=== PATIENT | female | born 1980 | race Caucasian/White ===

== ENCOUNTER → 2016-06-19 | Outpatient (CLI) | payer BC | LOC: MW.CHOBGYN 15:24 | PROVIDERS: ATTEND Nurse Practitioner Women's Health | DX: O36.0191 Maternal care for anti-D [Rh] antibodies, unspecified trimester, fetus 1 (principal); O09.899 Supervision of other high risk pregnancies, unspecified trimester | CPT/HCPCS: 36415; 85025; 86850; 86900; 86901; J2790 ==

== ENCOUNTER → 2016-06-22 | Outpatient (CLI) | payer BC | LOC: MW.CHOBGYN 08:43 | PROVIDERS: ATTEND Nurse Practitioner Women's Health | DX: Z34.90 Encounter for supervision of normal pregnancy, unspecified, unspecified trimester (principal) | CPT/HCPCS: 36415; 82950 ==

== ENCOUNTER → 2016-08-07 | Outpatient (CLI) | payer BC | LOC: MW.CHOBGYN 16:27 | PROVIDERS: ATTEND Advanced Practice Midwife | DX: Z34.90 Encounter for supervision of normal pregnancy, unspecified, unspecified trimester (principal) | CPT/HCPCS: 87081 ==

== ENCOUNTER 2016-08-25 05:32 | Inpatient (IN) | payer BC ==
[2016-08-25] MEDS ORDERED: Sodium Chloride 0.9% 2.5 ML Syringe FLUSH PRN (08:28)
[2016-08-25] MEDS ORDERED: Lidocaine 1% 50 ML MDV INJECT PRN (08:28)
[2016-08-25] MEDS ORDERED: Water For Irrigation,Sterile 1,000 ML Container IRR PRN (08:28)
[2016-08-25] MEDS ORDERED: Methylergonovine 0.2 MG/1 ML Amp IM PRN (08:28)
[2016-08-25] MEDS ORDERED: Carboprost Tromethamine 250 MCG/1 ML Amp IM PRN (08:28)
[2016-08-25] MEDS ORDERED: Sodium Chloride 0.9% 10 ML Syringe FLUSH PRN (08:28)
[2016-08-25] MEDS ORDERED: Butorphanol 1 MG/ML SDV IVPUSH PRN (08:28)
[2016-08-25] MEDS ORDERED: Nalbuphine 10 MG/1 ML Vial IVPUSH PRN (08:28)
[2016-08-25] MEDS ORDERED: Misoprostol 200 MCG Tab PO PRN (08:28)
[2016-08-25] MEDS ORDERED: Oxytocin/Lactated Ringers 30 UNIT/500 ML BAG IV SCH (08:30)
--- NOTE | 2016-08-25 08:31 | PCM.LDHP ---
L&D History of Present Illness - General Date of Service: 08/25/16 Admit Problem/Dx: Patient Status Order with Admit Dx/Problem 08/25/16 06:39 Patient Status [ADT] Routine Admission Diagnosis/Problem Admission Diagnosis/Problem Planned 08/25/16 08:27 36 yo EDC 09/11/2016 37 4/7 wks. A-, RI, GBS neg. Hx of PTD, was on 17OHP this . Prob: AMA, GDMA1. Source of Information: Patient History Limitations: Reports: No limitations - History of Present Illness Timing/Duration: Reports: gradual onset Severity: moderate Improves with: Reports: None Worsens with: Reports: None Associated Symptoms: Reports: N - Related Data Allergies/Adverse Reactions: Allergies Allergy/AdvReac Type Severity Reaction Status Date / Time Sulfa (Sulfonamide Allergy Hives Verified 08/25/16 06:38 Antibiotics) Home Medications: Home Meds DULoxetine [Cymbalta] 1 tab PO BRK 05/25/14 [History] Vilazodone [Viibryd] 1 tab PO BRK 05/25/14 [History] Past Medical History HEENT History: Reports: Sinusitis 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: Psychiatric History: Reports: Anxiety, Depression - Past Surgical History HEENT Surgical History: Reports: Naso-sinus surgery, Tonsillectomy GI Surgical History: Reports: Cholecystectomy Social & Family History - Family History Family Medical History: Noncontributory - Tobacco Use Smoking Status *Q: Never Smoker Used Tobacco, but Quit: No Second Hand Smoke Exposure: No - Caffeine Use Caffeine Use: Reports: None - Alcohol Use Days Per Week of Alcohol Use: 0 Number of Drinks Per Day: 0 Total Drinks Per Week: 0 - Recreational Drug Use Recreational Drug Use: No Drug Use in Last 12 Months: No H&P Review of Systems - Review of Systems: Review Of Systems: See Below General: Reports: no symptoms HEENT: Reports: no symptoms Pulmonary: Reports: No Symptoms Cardiovascular: Reports: no symptoms Gastrointestinal: Reports: No symptoms Genitourinary: Reports: no symptoms Musculoskeletal: Reports: no symptoms Skin: Reports: no symptoms Psychiatric: Reports: no symptoms Neurological: Reports: No Symptoms Hematologic/Lymphatic: Reports: no symptoms Immunologic: Reports: no symptoms L&D Exam - Exam Exam: See Below - Vital Signs Weight: 100.244 kg - OB Specific Contraction Intensity: Moderate to Strong movement: active heart tones: present Heart Rate (FHR) Variability: Moderate (6-25 bmp) Presentation: Vertex - Ivan Score Ivan Score Cervix Position: Midposition Ivan Score Consistency: Soft Ivan Score Effacement: >80% Ivan Score Dilation: 3-4 cm Ivna Score 's Station: -2 Ivan Score Total: 9 - Exam General: alert, oriented, cooperative HEENT: Hearing intact Lungs: Normal respiratory effort Abdomen: soft (gravid) Rectal Exam: Deferred Genitourinary: Cervical dilitation Back Exam: full range of motion Extremities: normal inspection Skin: warm, dry, intact Neurological: cranial nerves intact Psychiatric: alert, normal affect, normal mood - Problem List (1) Supervision of normal IUP (intrauterine ) in multigravida SNOMED Code(s): 746302126, 684155496, 304813903 ICD Code: Z34.80 - ENCOUNTER FOR SUPRVSN OF NORMAL , UNSP TRIMESTER Status: Acute Priority: High Current Visit: Yes Qualifiers: Trimester: third trimester Qualified Code(s): Z34.83 - Encounter for supervision of other normal , third trimester Problem List Initiated/Reviewed/Updated: Yes Orders Last 24hrs: Active Orders 24 hr Category Date Time Status Patient Status [ADT] Routine ADT 08/25/16 06:39 Active Non Stress Test [RC] PER UNIT ROUTINE Care 08/25/16 06:39 Active Up ad Cassie [RC] ASDIRECTED Care 08/25/16 06:39 Active Vaginal Exam [RC] Click To Edit Care 08/25/16 06:39 Active Vital Signs [RC] PER UNIT ROUTINE Care 08/25/16 06:39 Active Resuscitation Status Routine Resus Stat 08/25/16 06:39 Ordered Assessment/Plan Comment:: Labor A: 36 yo EDC 09/11/2016 37 4/7 wks. A-, RI, GBS neg. Hx of PTD, was on 17OHP this . Prob: AMA, GDMA1 P: Admit to L&D, intermit monitoring per protocol, epidural prn, anticipate
[2016-08-25] MEDS: Lactated Ringers 1,000 ML IV SCH ×2 (08:40→10:02)
[2016-08-25] MEDS ORDERED: Ibuprofen 400 MG Tab PO PRN (11:12)
[2016-08-25] MEDS ORDERED: Acetaminophen 500 MG Tab PO PRN ×2 (11:12)
[2016-08-25] MEDS ORDERED: Witch Hazel Medicated Pads 40/Jar TOP PRN (11:12)
[2016-08-25] MEDS ORDERED: Bisacodyl 10 MG Supp RECTAL PRN (11:12)
[2016-08-25] MEDS ORDERED: Benzocaine/Menthol 20%-0.5% Spray 78 GM Cannister TOP PRN (11:12)
[2016-08-25] MEDS ORDERED: oxyCODONE 5 MG Tab PO PRN (11:12)
[2016-08-25] MEDS ORDERED: Docusate Sodium 100 MG Cap PO PRN (11:12)
[2016-08-25] MEDS ORDERED: Lanolin 100% Cream 7 GM Tube TOP PRN (11:12)
--- NOTE | 2016-08-25 11:20 | PCM.DEL ---
L & D Note - General Info Date of Service: 08/25/16 Mother's Due Date: 09/11/16 - Delivery Note Labor: spontaneous Delivery Outcome: Livebirth Infant Delivery Method: Spontaneous Vaginal Delivery Presentation: Vertex Nuchal cord: none Amniotic Fluid Description: Clear Episiotomy Type: None Laceration: none Placenta: intact, spontaneous Estimated blood loss: 100 Resuscitation needed: No Score 1 min: 6 Score 5 min: 9 Second Stage Interventions: Reports: Pushing Effectively Delivery Comments (Free Text/Narrative):: of viable male over intact perineum. Head delivered with good pushing, shoulders and body followed easily. Infant to mothers abd with RN at for evaluation. Delayed cord clamping. Pitocin to IVF. Cord clamped x2 and cut by FOB. Cord blood collected. Placenta delivered grossly intact with 3VC. Inspection noted intact perineum. Counts correct. EBL 100cc, APGARS 6/9, Wt: 8lb 1oz. Mother and infant left in stable condition for recovery. - General Info Date of Service: 08/25/16 Admission Dx/Problem (Free Text): Patient Status Order with Admit Dx/Problem 08/25/16 06:39 Patient Status [ADT] Routine Admission Diagnosis/Problem Admission Diagnosis/Problem Planned 08/25/16 08:27 36 yo EDC 09/11/2016 37 4/7 wks. A-, RI, GBS neg. Hx of PTD, was on 17OHP this . Prob: AMA, GDMA1. Functional Status: Reports: pain controlled, tolerating diet - Review of Systems General: Reports: No Symptoms HEENT: Reports: no symptoms Pulmonary: Reports: no symptoms Cardiovascular: Reports: No Symptoms Gastrointestinal: Reports: No symptoms Genitourinary: Reports: no symptoms Musculoskeletal: Reports: no symptoms Skin: Reports: no symptoms Neurological: Reports: No Symptoms Psychiatric: Reports: no symptoms - Patient Data Weight - most recent: 100.244 kg Lab Results last 24 hrs: Laboratory Results - last 24 hr 08/25/16 08/25/16 Range/Units 08:49 08:49 WBC 8.29 (4.0-11.0) K/uL RBC 4.28 L (4.30-5.90) M/uL Hgb 10.1 L (12.0-16.0) g/dL Hct 32.2 L (36.0-46.0) % MCV 75.2 L (80.0-98.0) fL MCH 23.6 L (27.0-32.0) pg MCHC 31.4 (31.0-37.0) g/dL RDW Std Deviation 46.7 (28.0-62.0) fl RDW Coeff of Angelito 17 H (11.0-15.0) % Plt Count 187 (150-400) K/uL Nucleated RBC % 0.0 /100WBC Nucleated RBCs # 0 K/uL Blood Type A NEGATIVE Antibody Screen POSITIVE Antibody Identification Undetermined Specific Med Orders - Current: Current Medications Acetaminophen (Tylenol Extra Strength) 500 mg PO Q4H PRN PRN Reason: Pain Acetaminophen (Tylenol Extra Strength) 1,000 mg PO Q4H PRN PRN Reason: Pain Benzocaine/Menthol (Dermoplast Pain Relief 20%-0.5% [place]) 78 gm TOP ASDIRECTED PRN PRN Reason: Perineal Comfort Measure Bisacodyl (Dulcolax) 10 mg RECTAL .ONCE PRN PRN Reason: Constipation Docusate Sodium (Colace) 100 mg PO BID PRN PRN Reason: Constipation Emollient Ointment (Lansinoh Hpa) 0 gm TOP ASDIRECTED PRN PRN Reason: Sore Nipples Ibuprofen (Motrin) 400 mg PO Q4H PRN PRN Reason: Pain Ibuprofen (Motrin) 800 mg PO Q6H PRN PRN Reason: Pain Oxycodone HCl (Oxycodone) 5 mg PO Q2H PRN PRN Reason: Pain Witch Brandi (Tucks) 1 pad TOP ASDIRECTED PRN PRN Reason: comfort care Discontinued Medications Butorphanol Tartrate (Stadol) 1 mg IVPUSH ASDIRECTED PRN PRN Reason: Pain Carboprost Tromethamine (Hemabate Ds) 250 mcg IM ASDIRECTED PRN PRN Reason: Post Hemorrhage Lactated Ringer's (Ringers, Lactated) 1,000 mls @ 150 mls/hr IV ASDIRECTED COUNTS INCLUDE 234 BEDS AT THE [facility] Last Admin: 08/25/16 10:02 Dose: 150 mls/hr Oxytocin/Lactated Ringer's (Pitocin In Lr 30 Units/500 Ml) 30 unit in 500 mls @ 999 mls/hr IV TITRATE ALBERT PRN Reason: 999 MUNITS/MIN Stop: 08/25/16 09:01 Last Admin: 08/25/16 10:50 Dose: 999 munits/min, 999 mls/hr Lidocaine HCl (Xylocaine 1%) 50 ml INJECT .ONCE PRN PRN Reason: Laceration repair Methylergonovine Maleate (Methergine) 0.2 mg IM ASDIRECTED PRN PRN Reason: Post Hemorrhage Misoprostol (Cytotec) 200 mcg PO .ONCE PRN PRN Reason: Post Hemorrhage Nalbuphine HCl (Nubain) 10 mg IVPUSH ASDIRECTED PRN PRN Reason: Pain (severe 7-10) Stop: 08/27/16 08:29 Last Admin: 08/25/16 09:24 Dose: 10 mg Sodium Chloride (Saline Flush) 10 ml FLUSH ASDIRECTED PRN PRN Reason: Keep Vein Open Sodium Chloride (Saline Flush) 2.5 ml FLUSH ASDIRECTED PRN PRN Reason: Keep Vein Open Sterile Water (Sterile Water For Irrigation) 1,000 ml IRR ASDIRECTED PRN PRN Reason: delivery Last Admin: 08/25/16 10:50 Dose: 1,000 ml - Exam General: alert, oriented, cooperative, no acute distress Lungs: Normal respiratory effort Abdomen: soft, no tenderness, no distension (Female) Exam: Normal external exam, Vaginal bleeding Back Exam: full range of motion Extremities: edema (legs and feet) Skin: warm, dry, intact Wound/Incisions: healing well Neurological: no new focal deficit Psy/Mental Status: alert, normal affect, normal mood - Problem List & Annotations (1) Supervision of normal IUP (intrauterine ) in multigravida SNOMED Code(s): 353879641, 941484083, 588636441 Code(s): Z34.80 - ENCOUNTER FOR SUPRVSN OF NORMAL , UNSP TRIMESTER Status: Acute Priority: High Current Visit: Yes Qualifiers: Trimester: third trimester Qualified Code(s): Z34.83 - Encounter for supervision of other normal , third trimester (2) (normal spontaneous vaginal delivery) SNOMED Code(s): 56038609 Code(s): O80 - ENCOUNTER FOR FULL-TERM UNCOMPLICATED DELIVERY Status: Acute Priority: Medium Current Visit: Yes - Problem List Review Problem List Initiated/Reviewed/Updated: Yes - My Orders Last 24 Hours: My Active Orders 08/25/16 06:39 Non Stress Test [RC] PER UNIT ROUTINE Up ad Cassie [RC] ASDIRECTED Vaginal Exam [RC] Click To Edit Vital Signs [RC] PER UNIT ROUTINE 08/25/16 08:28 Heart Tones [RC] CONTINUOUS Non Stress Test [RC] PER UNIT ROUTINE May Shower [RC] ASDIRECTED Notify Provider [RC] PRN Up ad Cassie [RC] ASDIRECTED Vaginal Exam [RC] PRN Vital Signs [RC] PER UNIT ROUTINE 08/25/16 11:12 May Shower [RC] ASDIRECTED Up ad Cassie [RC] ASDIRECTED Vital Signs [RC] PER UNIT ROUTINE Acetaminophen [Tylenol Extra Strength] 1,000 mg PO Q4H PRN Acetaminophen [Tylenol Extra Strength] 500 mg PO Q4H PRN Benzocaine/Menthol [Dermoplast Pain Relief 20%-0.5% [place]] 78 gm TOP ASDIRECTED PRN Bisacodyl [Dulcolax] 10 mg RECTAL .ONCE PRN Docusate Sodium [Colace] 100 mg PO BID PRN Ibuprofen [Motrin] 400 mg PO Q4H PRN Ibuprofen [Motrin] 800 mg PO Q6H PRN Lanolin [Lansinoh HPA] See Dose Instructions TOP ASDIRECTED PRN Witch Brandi [Tucks] 1 pad TOP ASDIRECTED PRN oxyCODONE 5 mg PO Q2H PRN Assess Lochia [WOMSER] Per Unit Routine Assess Uterine Involution [WOMSER] Per Unit Routine Peripheral IV Discontinue [OM.PC] Routine Resuscitation Status Routine 08/25/16 11:14 Patient Status [ADT] Routine 08/25/16 Lunch Regular Diet [DIET] - Assessment Assessment:: of viable male. Perineum intact. EBL 100cc, APGARS 6/9, Wt: 8lb 1oz. - Plan Plan:: Labor A: 36 yo EDC 09/11/2016 37 4/7 wks. A-, RI, GBS neg. Hx of PTD, was on 17OHP this . Prob: AMA, GDMA1 P: Admit to L&D, intermit monitoring per protocol, epidural prn, anticipate Delivery P: routine pp plan of care.
[2016-08-25] MEDS: Ibuprofen 800 MG Tab PO PRN (21:01)
[2016-08-26] MEDS: Ibuprofen 800 MG Tab PO PRN (04:56)
--- NOTE | 2016-08-26 08:18 | PCM.DCSUM1 ---
Discharge Summary - Hospital Course Free Text/Narrative:: Discharge home with . Follow up 6 weeks or sooner if needed. - Discharge Data Discharge Date: 08/26/16 Discharge Disposition: Home, Self-Care 01 Condition: Good - Discharge Diagnosis/Problem(s) (1) Supervision of normal IUP (intrauterine ) in multigravida SNOMED Code(s): 805989270, 210204413, 321894049 ICD Code: Z34.80 - ENCOUNTER FOR SUPRVSN OF NORMAL , UNSP TRIMESTER Status: Acute Priority: High Current Visit: Yes Qualifiers: Trimester: third trimester Qualified Code(s): Z34.83 - Encounter for supervision of other normal , third trimester (2) (normal spontaneous vaginal delivery) SNOMED Code(s): 02066942 ICD Code: O80 - ENCOUNTER FOR FULL-TERM UNCOMPLICATED DELIVERY Status: Acute Priority: Medium Current Visit: Yes - Patient Instructions Diet: Usual Diet as Tolerated Activity: As Tolerated, Rest and Relax Today Driving: May Drive Today Showering/Bathing: May Shower Notify Provider of: Fever, Increased Pain, Swelling and Redness, Nausea and/or Vomiting Other/Special Instructions: Discharge home with . Follow up 6 weeks or sooner if needed. - Discharge Plan Home Medications: Home Meds DULoxetine [Cymbalta] 1 tab PO BRK 05/25/14 [History] Vilazodone [Viibryd] 1 tab PO BRK 05/25/14 [History] Referrals: [facility] [Outside] Patricia Hamilton CNM [Primary Care Provider] - 10/06/16 10:45 am - General Info Date of Service: 08/26/16 Admission Dx/Problem (Free Text: Patient Status Order with Admit Dx/Problem 08/25/16 06:39 Patient Status [ADT] Routine Admission Diagnosis/Problem Admission Diagnosis/Problem Planned 08/25/16 08:27 36 yo EDC 09/11/2016 37 4/7 wks. A-, RI, GBS neg. Hx of PTD, was on 17OHP this . Prob: AMA, GDMA1. Functional Status: Reports: pain controlled, tolerating diet, ambulating, urinating - Review of Systems General: Reports: No Symptoms HEENT: Reports: no symptoms Pulmonary: Reports: no symptoms Cardiovascular: Reports: No Symptoms Gastrointestinal: Reports: No symptoms Genitourinary: Reports: no symptoms Musculoskeletal: Reports: no symptoms Skin: Reports: no symptoms Neurological: Reports: No Symptoms Psychiatric: Reports: no symptoms - Patient Data Vitals - Most Recent: Last Vital Signs Temp 36.7 C 08/26/16 04:34 Pulse 67 08/26/16 04:34 Resp 14 08/26/16 04:34 BP 137/69 08/26/16 04:34 Pulse Ox 99 08/26/16 04:34 Weight - Most Recent: 100.244 kg Lab Results - Last 24 hrs: Laboratory Results - last 24 hr 08/25/16 08/25/16 Range/Units 08:49 08:49 WBC 8.29 (4.0-11.0) K/uL RBC 4.28 L (4.30-5.90) M/uL Hgb 10.1 L (12.0-16.0) g/dL Hct 32.2 L (36.0-46.0) % MCV 75.2 L (80.0-98.0) fL MCH 23.6 L (27.0-32.0) pg MCHC 31.4 (31.0-37.0) g/dL RDW Std Deviation 46.7 (28.0-62.0) fl RDW Coeff of Angelito 17 H (11.0-15.0) % Plt Count 187 (150-400) K/uL Nucleated RBC % 0.0 /100WBC Nucleated RBCs # 0 K/uL Blood Type A NEGATIVE Antibody Screen POSITIVE Antibody Identification Undetermined Specific Med Orders - Current: Current Medications Acetaminophen (Tylenol Extra Strength) 500 mg PO Q4H PRN PRN Reason: Pain Acetaminophen (Tylenol Extra Strength) 1,000 mg PO Q4H PRN PRN Reason: Pain Benzocaine/Menthol (Dermoplast Pain Relief 20%-0.5% [place]) 78 gm TOP ASDIRECTED PRN PRN Reason: Perineal Comfort Measure Bisacodyl (Dulcolax) 10 mg RECTAL .ONCE PRN PRN Reason: Constipation Docusate Sodium (Colace) 100 mg PO BID PRN PRN Reason: Constipation Emollient Ointment (Lansinoh Hpa) 0 gm TOP ASDIRECTED PRN PRN Reason: Sore Nipples Ibuprofen (Motrin) 400 mg PO Q4H PRN PRN Reason: Pain Ibuprofen (Motrin) 800 mg PO Q6H PRN PRN Reason: Pain Last Admin: 08/26/16 04:56 Dose: 800 mg Oxycodone HCl (Oxycodone) 5 mg PO Q2H PRN PRN Reason: Pain Witch Brandi (Tucks) 1 pad TOP ASDIRECTED PRN PRN Reason: comfort care Discontinued Medications Butorphanol Tartrate (Stadol) 1 mg IVPUSH ASDIRECTED PRN PRN Reason: Pain Carboprost Tromethamine (Hemabate Ds) 250 mcg IM ASDIRECTED PRN PRN Reason: Post Hemorrhage Lactated Ringer's (Ringers, Lactated) 1,000 mls @ 150 mls/hr IV ASDIRECTED ALBERT Last Admin: 08/25/16 10:02 Dose: 150 mls/hr Oxytocin/Lactated Ringer's (Pitocin In Lr 30 Units/500 Ml) 30 unit in 500 mls @ 999 mls/hr IV TITRATE ALBERT PRN Reason: 999 MUNITS/MIN Stop: 08/25/16 09:01 Last Admin: 08/25/16 10:50 Dose: 999 munits/min, 999 mls/hr Lidocaine HCl (Xylocaine 1%) 50 ml INJECT .ONCE PRN PRN Reason: Laceration repair Methylergonovine Maleate (Methergine) 0.2 mg IM ASDIRECTED PRN PRN Reason: Post Hemorrhage Misoprostol (Cytotec) 200 mcg PO .ONCE PRN PRN Reason: Post Hemorrhage Nalbuphine HCl (Nubain) 10 mg IVPUSH ASDIRECTED PRN PRN Reason: Pain (severe 7-10) Stop: 08/27/16 08:29 Last Admin: 08/25/16 09:24 Dose: 10 mg Sodium Chloride (Saline Flush) 10 ml FLUSH ASDIRECTED PRN PRN Reason: Keep Vein Open Sodium Chloride (Saline Flush) 2.5 ml FLUSH ASDIRECTED PRN PRN Reason: Keep Vein Open Sterile Water (Sterile Water For Irrigation) 1,000 ml IRR ASDIRECTED PRN PRN Reason: delivery Last Admin: 08/25/16 10:50 Dose: 1,000 ml - Exam General: Reports: alert, oriented, cooperative, no acute distress Lungs: Reports: Normal respiratory effort Abdomen: Reports: soft, no tenderness, no distension (Female) Exam: Vaginal bleeding Rectal (Female) Exam: Deferred Back Exam: Reports: full range of motion Extremities: Reports: no edema, normal pulses Skin: Reports: warm, dry, intact Wound/Incisions: Reports: healing well Neurological: Reports: no new focal deficit Psy/Mental Status: Reports: alert, normal affect, normal mood *Q Meaningful Use (DIS) - VTE *Q VTE Criteria *Q: - Stroke *Q Stroke Criteria *Q: - AMI *Q AMI Criteria *Q:
[2016-08-26 13:16] VITALS: BP 129/76
== END 2016-08-26 14:25 | disposition home or self-care (01) | DRG 560 ==
LOC: MW.OB 05:32 → MW.OBCHECK 05:32 → MW.OB 08:28
PROVIDERS: ADMIT Obstetrics & Gynecology; ATTEND Obstetrics & Gynecology
PROC: 10E0XZZ Delivery of Products of Conception, External Approach (ICD-10-PCS; principal; 2016-08-25)
DX: O80 Encounter for full-term uncomplicated delivery (principal); Z3A.37 37 weeks gestation of pregnancy; Z37.0 Single live birth
CPT/HCPCS: 36415; 59025; 85027; 86850; 86870; 86900; 86901; A9270-GY; J2300; J7120

== ENCOUNTER → 2016-08-31 | Outpatient (CLI) | payer BC ==
[2016-08-31 16:06] LABS: CHLORIDE,CL 115 mmol/L (98-110); SODIUM,NA 144 mmol/L (136-146)
== END ==
LOC: MW.CHOBGYN 13:49
PROVIDERS: ATTEND Advanced Practice Midwife
DX: R03.0 Elevated blood-pressure reading, without diagnosis of hypertension (principal)
CPT/HCPCS: 36415; 80053; 82570; 84156; 84550; 85025

== ENCOUNTER 2018-05-25 22:02 | Emergency (ER) | payer BC ==
[2018-05-25] MEDS ORDERED: Ibuprofen 800 MG Tab PO ONE (22:20)
--- NOTE | 2018-05-25 22:24 | EDM.PDOC ---
ED HPI GENERAL MEDICAL PROBLEM - General Chief Complaint: Lower Extremity Injury/Pain Stated Complaint: PT FELL AND HURT LT FOOT Time Seen by Provider: 05/25/18 22:16 - History of Present Illness INITIAL COMMENTS - FREE TEXT/NARRATIVE: HISTORY AND PHYSICAL: History of present illness: The patient is a healthy 37-year-old female who presents after she slipped and fell on her stairs at home rolling her left ankle but she did not pass out or blackout. She did not her head or neck and has no head neck or back pain and no other extremity complaints other than the lateral left ankle and foot. The patient has been walking on it and has not taken anything for the pain. She noticed swelling this evening so she came for evaluation. She has no neurosensory changes in her distal foot and no proximal knee or hip pain Review of systems: As per history of present illness and below otherwise all systems reviewed and negative. Past medical history: As per history of present illness and as reviewed below otherwise noncontributory. Surgical history: As per history of present illness and as reviewed below otherwise noncontributory. Social history: No reported history of drug or alcohol abuse. Family history: As per history of present illness and as reviewed below otherwise noncontributory. Physical exam: HEENT: Atraumatic, normocephalic, negative for conjunctival pallor or scleral icterus, mucous membranes moist, throat clear, neck supple, nontender, trachea midline. Lungs: Clear to auscultation, breath sounds equal bilaterally, chest nontender. Heart: S1S2, regular in rhythm no overt murmurs Abdomen: Deferred Pelvis: Stable nontender. No lateral hip tenderness on the left Genitourinary: Deferred. Rectal: Deferred. Extremities: Atraumatic, negative for cords or calf pain. Neurovascular unremarkable. His full range of motion of all extremities with the exception of the left ankle and foot with her soft tissue swelling which is mild at the lateral malleolus and the lateral foot. There is tenderness in the same region but no ecchymosis defects or deformities and no malalignment of the ankle joint. There is no distal metatarsal tenderness or toe tenderness heel tenderness and no proximal tib-fib knee or hip tenderness on the left. Neuro: Awake, alert, oriented. Cranial nerves II through XII unremarkable. Cerebellum unremarkable. Motor and sensory unremarkable throughout. Exam nonfocal. Diagnostics: X-ray left ankle and foot Therapeutics: Motrin, crutches, orthopedic boot Impression: Left ankle/foot injury sprain Definitive disposition and diagnosis as appropriate pending reevaluation and review of above. 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 ED EXAM, GENERAL - Physical Exam Exam: See Below (See dictation) Course - Vital Signs Last Recorded V/S: Last Vital Signs Temp 36.6 C 05/25/18 22:15 Pulse 82 05/25/18 22:15 Resp 18 05/25/18 22:15 BP 135/90 05/25/18 22:15 Pulse Ox 99 05/25/18 22:15 - Orders/Labs/Meds Orders: Active Orders 24 hr Category Date Time Status DME for Discharge [COMM] Stat Oth 05/25/18 23:33 Ordered Meds: Medications Discontinued Medications Generic Name Dose Route Start Last Admin Trade Name Freq PRN Reason Stop Dose Admin Ibuprofen 800 mg 05/25/18 22:20 05/25/18 22:42 Motrin PO 05/25/18 22:21 800 mg ONETIME ONE Administration Departure - Departure Time of Disposition: 23:33 Disposition: Home, Self-Care 01 Condition: Good Clinical Impression: Fall Qualifiers: Encounter type: initial encounter Qualified Code(s): W19.XXXA - Unspecified fall, initial encounter Left ankle injury Qualifiers: Encounter type: initial encounter Qualified Code(s): S99.912A - Unspecified injury of left ankle, initial encounter - Discharge Information Referrals: PCP,None [Primary Care Provider] - Forms: ED Department Discharge Additional Instructions: The following information is given to patients seen in the emergency department who are being discharged to home. This information is to outline your options for follow-up care. We provide all patients seen in our emergency department with a follow-up referral. The need for follow-up, as well as the timing and circumstances, are variable depending upon the specifics of your emergency department visit. If you don't have a primary care physician on staff, we will provide you with a referral. We always advise you to contact your personal physician following an emergency department visit to inform them of the circumstance of the visit and for follow-up with them and/or the need for any referrals to a consulting specialist. The emergency department will also refer you to a specialist when appropriate. This referral assures that you have the opportunity for followup care with a specialist. All of these measure are taken in an effort to provide you with optimal care, which includes your followup. Under all circumstances we always encourage you to contact your private physician who remains a resource for coordinating your care. When calling for followup care, please make the office aware that this follow-up is from your recent emergency room visit. If for any reason you are refused follow-up, please contact the [facility] emergency department at and ask to speak to the emergency department charge nurse. [facility]--Orthopedic clinic Professional [address] [address] Ice and elevate the area as much as possible and do not weight-bear until you' re followed up in the clinic. These call the clinic tomorrow morning at 8 AM to schedule follow-up appointment and use your crutches and the ortho boot you have been given. Loosen or remove the orthopedic boot at sleep times but otherwise wear it throughout the day. Use [id number] Tylenol and/or ibuprofen for pain and return to ER as needed and as discussed - My Orders Last 24 Hours: My Active Orders 05/25/18 23:33 DME for Discharge [COMM] Stat - Assessment/Plan Last 24 Hours: My Active Orders 05/25/18 23:33 DME for Discharge [COMM] Stat
--- NOTE | 2018-05-25 23:29 | CR ---
INDICATION: Ankle injury TECHNIQUE: Ankle radiograph 3 views left COMPARISON: None FINDINGS: Bone: No acute fractures or aggressive bone lesions are identified. Joint: The ankle mortise joint and the visualized hindfoot joints are unremarkable in appearance. No significant ankle effusion is seen. Soft tissue: The [place] fat pad and the Achilles` tendon is normal in appearance. No radiopaque foreign bodies are seen. IMPRESSION: 1. No acute osseous injuries or abnormalities are noted. Dictated by: Obed Queen MD @ 05/25/2018 23:28:21 (Electronically Signed)
--- NOTE | 2018-05-25 23:31 | CR ---
INDICATION: Foot injury TECHNIQUE: Foot radiograph 2 views left COMPARISON: None FINDINGS: Bone: No acute fractures or aggressive bone lesions are identified. Joint: The visualized hindfoot, midfoot, and forefoot joints are unremarkable in appearance. No significant ankle effusion is seen. Soft tissue: Unremarkable. No radiopaque foreign bodies are seen. IMPRESSION: 1. No acute osseous injuries or abnormalities are noted. Dictated by Obed Queen MD @ 05/25/2018 11:29:05 PM Dictated by: Obed Queen MD @ 05/25/2018 23:29:11 (Electronically Signed)
[2018-05-25 23:59] VITALS: BP 135/85
== END 2018-05-25 23:56 | disposition home or self-care (01) ==
LOC: MW.ED 22:02
DX: S93.402A Sprain of unspecified ligament of left ankle, initial encounter (principal); F41.9 Anxiety disorder, unspecified; F32.9 Major depressive disorder, single episode, unspecified; Z98.890 Other specified postprocedural states; Z88.2 Allergy status to sulfonamides; W10.9XXA Fall (on) (from) unspecified stairs and steps, initial encounter; Y92.009 Unspecified place in unspecified non-institutional (private) residence as the place of occurrence of the external cause
CPT/HCPCS: 73610; 73620; 99283; A9270

== ENCOUNTER 2020-08-18 09:59 | Emergency (ER) | payer SELFPAY ==
[2020-08-18 10:08] VITALS: BP 141/99
--- NOTE | 2020-08-18 10:26 | EDM.PDOC ---
ED HPI GENERAL MEDICAL PROBLEM - General Chief Complaint: ENT Problem Stated Complaint: SORE THROAT Time Seen by Provider: 08/18/20 10:00 Source of Information: Reports: Patient History Limitations: Reports: No Limitations - History of Present Illness INITIAL COMMENTS - FREE TEXT/NARRATIVE: HISTORY AND PHYSICAL: History of present illness: Patient is a 40-year-old female who presents to the ED today with concern of sore throat and states that she lost her voice since yesterday. Patient states when she woke up this morning, her voice is hoarse and states that it hurts when she talks. Patient states that she has been able to eat and drink but does have some pain with swallowing. Patient states that her sore throat does radiate into her bilateral ears and has had some nasal congestion. Patient states she has a history of iron deficiency anemia but denies any other health history. Patient denies any other symptoms or concerns. Patient denies fever, chills, chest pain, shortness of breath, or cough. Denies headache, neck stiff ness, change in vision, syncope, or near syncope. Denies nausea, vomiting, abdominal pain, diarrhea, constipation, or dysuria. Has not noted any blood in urine or stool. Patient has been eating and drinking appropriately. Review of systems: As per history of present illness and below otherwise all systems reviewed and negative. Past medical history: As per history of present illness and as reviewed below otherwise noncontributory. Surgical history: As per history of present illness and as reviewed below otherwise noncontributo ry. Social history: See social history for further information Family history: As per history of present illness and as reviewed below otherwise noncontributory. Physical exam: General: Patient is alert, oriented, and in no acute distress. Patient sitting comfortably on exam table. Vitals stable and reviewed by me. HEENT: Laryngitis noted. Atraumatic, normocephalic, pupils equal and reactive bilaterally, negative for conjunctival pallor or scleral icterus, mucous membranes moist, TMs normal bilaterally, throat mildly injected with tonsils equal without exudate, uvula midline, neck supple, nontender, trachea midline. No drooling or trismus noted. No meningeal signs. No hot potato voice noted. Lungs: Clear to auscultation, breath sounds equal bilaterally, chest nontender. Heart: S1S2, regular rate and rhythm without overt murmur Abdomen: Soft, nondistended, nontender. Negative for masses or hepatosplenomegaly. Negative for costovertebral tenderness. Pelvis: Stable nontender. Genitourinary: Deferred. Rectal: Deferred. Skin: Intact, warm, dry. No lesions or rashes noted. Extremities: Atraumatic, negative for cords or calf pain. Neurovascular unremarkable. Neuro: Awake, alert, oriented. Cranial nerves II through XII unremarkable. Cerebellum unremarkable. Motor and sensory unremarkable throughout. Exam nonfocal. Notes: Signs and symptoms hat would prompt return to the ED thoroughly discussed with patient. Discussed the importance for follow up with a primary care provider. Voices understanding and is agreeable to plan of care. Denies any further questions or concerns at this time. Diagnostics: Strep Therapeutics: None Prescription: None Impression: Pharyngitis Laryngitis Viral syndrome Plan: 1. Use cough drops and/or other over the counter medications as needed for throat discomfort as discussed. Drink small but frequent sips of fluid to prevent dehydration. 2. Alternate Ibuprofen and Tylenol as directed for pain and discomfort. 3. Follow up with your primary care provider as discussed. 4. Return to the ED as needed and as discussed. Definitive disposition and diagnosis as appropriate pending reevaluation and review of above. 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: Musculoskeletal History: Reports: Fracture Other Musculoskeletal History: L ankle Psychiatric History: Reports: Anxiety, Depression - Infectious Disease History Infectious Disease History: Reports: Chicken Pox - Past Surgical History HEENT Surgical History: Reports: Naso-Sinus Surgery, Tonsillectomy Cardiovascular Surgical History: Reports: None GI Surgical History: Reports: Cholecystectomy, Other (See Below) Other GI Surgeries/Procedures: stents placed after gall bladder removed Musculoskeletal Surgical History: Reports: None Social & Family History - Family History Family Medical History: No Pertinent Family History - Tobacco Use Tobacco Use Status *Q: Never Tobacco User Second Hand Smoke Exposure: No - Caffeine Use Caffeine Use: Reports: Coffee, Energy Drinks, Soda - Recreational Drug Use Recreational Drug Use: No ED ROS GENERAL - Review of Systems Review Of Systems: Comprehensive ROS is negative, except as noted in HPI. ED EXAM, GENERAL - Physical Exam Exam: See Below (see dictation) Course - Vital Signs Last Recorded V/S: Last Vital Signs Temp 98 F 08/18/20 10:05 Pulse 85 08/18/20 11:03 Resp 16 08/18/20 11:03 BP 141/99 H 08/18/20 10:05 Pulse Ox 97 08/18/20 11:03 - Orders/Labs/Meds Labs: Laboratory Tests 08/18/20 Range/Units 10:22 Group A Strep (PCR) NOT DETECTED (NOT DETECT) Departure - Departure Time of Disposition: 11:18 Disposition: Home, Self-Care 01 Clinical Impression: Laryngitis, Viral syndrome Pharyngitis Qualifiers: Pharyngitis/tonsillitis etiology: unspecified etiology Qualified Code(s): J02.9 - Acute pharyngitis, unspecified - Discharge Information Instructions: Pharyngitis, [id number], Sore Throat, [id number] Referrals: Rosemary Soto NP [Primary Care Provider] - Forms: ED Department Discharge Additional Instructions: The following information is given to patients seen in the emergency department who are being discharged to home. This information is to outline your options for follow-up care. We provide all patients seen in our emergency department with a follow-up referral. The need for follow-up, as well as the timing and circumstances, are variable depending upon the specifics of your emergency department visit. If you don't have a primary care physician on staff, we will provide you with a referral. We always advise you to contact your personal physician following an emergency department visit to inform them of the circumstance of the visit and for follow-up with them and/or the need for any referrals to a consulting specialist. The emergency department will also refer you to a specialist when appropriate. This referral assures that you have the opportunity for follow-up care with a specialist. All of these measure are taken in an effort to provide you with optimal care, which includes your follow-up. Under all circumstances we always encourage you to contact your private physician who remains a resource for coordinating your care. When calling for follow-up care, please make the office aware that this follow-up is from your recent emergency room visit. If for any reason you are refused follow-up, please contact the [facility] Emergency Department at and asked to speak to the emergency department charge nurse. [facility] [address] [place] [id number] [facility] [address] [place] [id number] 1. Use cough drops and/or other over the counter medications as needed for throat discomfort as discussed. Drink small but frequent sips of fluid to prevent dehydration. 2. Alternate Ibuprofen and Tylenol as directed for pain and discomfort. 3. Follow up with your primary care provider as discussed. 4. Return to the ED as needed and as discussed. Sepsis Event Note (ED) - Evaluation Sepsis Screening Result: No Definite Risk - Focused Exam Vital Signs: Vital Signs Temp Pulse Resp BP Pulse Ox 08/18/20 11:03 85 16 97 08/18/20 10:34 88 18 97 08/18/20 10:05 98 F 106 H 18 141/99 H 97
[2020-08-18 11:03] VITALS: PULSE 85
== END 2020-08-18 11:03 | disposition home or self-care (01) ==
LOC: MW.ED 09:59
DX: J04.0 Acute laryngitis (principal); B34.9 Viral infection, unspecified; Z88.2 Allergy status to sulfonamides; Z79.899 Other long term (current) drug therapy
CPT/HCPCS: 87651-QW; 99282; 99283

== ENCOUNTER 2020-08-29 07:11 | Day surgery (SDC) | payer BC ==
[~2020-08-29 07:11] MED LIST: Glycopyrrolate 0.2 MG/ML SDV ONE; Lactated Ringers 1,000 ML IV SCH; Lidocaine 2% 5 ML SDV ONE; Midazolam 1 MG/ML 2 ML SDV ONE; Propofol 200 MG/20 ML SDV ONE; Sodium Chloride 0.9% 10 ML SDV IV PRN; Sodium Chloride 0.9% 10 ML Syringe FLUSH PRN; Sodium Chloride 0.9% 2.5 ML Syringe FLUSH PRN
--- NOTE | 2020-08-29 08:09 | PCM.PREANE ---
Preanesthetic Assessment - Anesthesia/Transfusion/Family Hx Anesthesia History: Prior Anesthesia Without Reaction Other Type of Anesthesia Reaction Comment: Denies any known problems in past Family History of Anesthesia Reaction: No Transfusion History: No Prior Transfusion(s) - Review of Systems General: No Symptoms Pulmonary: No Symptoms Cardiovascular: No Symptoms Gastrointestinal: No Symptoms Neurological: No Symptoms Other: Reports: None - Physical Assessment NPO Status Date: 08/29/20 NPO Status Time: 00:01 Vital Signs: Last Vital Signs Temp 97.3 F 08/29/20 07:30 Pulse 77 08/29/20 07:30 Resp 16 08/29/20 07:30 BP 131/84 08/29/20 07:30 Pulse Ox 96 08/29/20 07:30 Height: 5 ft 7 in Weight: 241 lb ASA Class: 2 Mental Status: Alert & Oriented x3 Airway Class: Mallampati = 2 Dentition: Reports: Normal Dentition ROM/Head Extension: Full Lungs: Clear to Auscultation, Normal Respiratory Effort Cardiovascular: Regular Rate, Regular Rhythm - Lab Values: Laboratory Last Values Urine HCG, Qual NEGATIVE (NEGATIVE) 08/29/20 07:30 - Allergies Allergies/Adverse Reactions: Allergies Allergy/AdvReac Type Severity Reaction Status Date / Time Sulfa (Sulfonamide Allergy Redness Verified 08/29/20 07:36 Antibiotics) - Anesthesia Plan Pre-Op Medication Ordered: None - Acknowledgements Anesthesia Type Planned: General Anesthesia Pt an Appropriate Candidate for the Planned Anesthesia: Yes Alternatives and Risks of Anesthesia Discussed w Pt/Guardian: Yes Pt/Guardian Understands and Agrees with Anesthesia Plan: Yes Additional Comments: npo anxiety depression randa obesity bmi 38 tob quit 2010 etoh occ par no questions PreAnesthesia Questionnaire HEENT History: Reports: Other (See Below) Other HEENT History: uses reading glasses Cardiovascular History: Reports: Heart Murmur Other Cardiovascular History: was told she has a "slight murmur" but is "insignifigant" Respiratory History: Reports: None Gastrointestinal History: Reports: GERD Genitourinary History: Reports: None 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: None Musculoskeletal History: Reports: Arthritis, Back Pain, Chronic Other Musculoskeletal History: hx of fx finger, hx of bulging discs in lower bacj Neurological History: Reports: None Psychiatric History: Reports: Anxiety, Depression Endocrine/Metabolic History: Reports: Obesity/BMI 30+ Hematologic History: Reports: None Immunologic History: Reports: None Oncologic (Cancer) History: Reports: None Dermatologic History: Reports: None - Infectious Disease History Infectious Disease History: Reports: Chicken Pox - Past Surgical History Head Surgeries/Procedures: Reports: None HEENT Surgical History: Reports: Adenoidectomy, Naso-Sinus Surgery, Tonsillectomy Cardiovascular Surgical History: Reports: None Respiratory Surgical History: Reports: None GI Surgical History: Reports: Cholecystectomy Other GI Surgeries/Procedures: stents placed after gall bladder removed Female Surgical History: Reports: None Endocrine Surgical History: Reports: None Neurological Surgical History: Reports: None Musculoskeletal Surgical History: Reports: None Oncologic Surgical History: Reports: None Dermatological Surgical History: Reports: None - SUBSTANCE USE Tobacco Use Status *Q: Former Tobacco User Tobacco Use Within Last Twelve Months: No Recreational Drug Use History: No - HOME MEDS Home Medications: Home Meds DULoxetine [Cymbalta] 30 mg PO BRK 05/25/14 [History] Sertraline [Zoloft] 25 mg PO DAILY 08/18/20 [History] Cholecalciferol (Vitamin D3) [Vitamin D3] 50,000 unit PO ASDIRECTED 08/23/20 [History] RABEprazole Sodium [Aciphex] 20 mg PO DAILY 08/23/20 [History] - CURRENT (IN HOUSE) MEDS Current Meds: Current Medications Lactated Ringer's (Ringers, Lactated) 1,000 mls @ 125 mls/hr IV ASDIRECTED ALBERT Last Admin: 08/29/20 07:35 Dose: 125 mls/hr Documented by: Sodium Chloride (Sodium Chloride 0.9% 10 Ml Syringe) 10 ml FLUSH ASDIRECTED PRN PRN Reason: Keep Vein Open Sodium Chloride (Sodium Chloride 0.9% 2.5 Ml Syringe) 2.5 ml FLUSH ASDIRECTED PRN PRN Reason: Keep Vein Open Sodium Chloride (Sodium Chloride 0.9% 10 Ml Syringe) 10 ml FLUSH ASDIRECTED PRN PRN Reason: Keep Vein Open Sodium Chloride (Sodium Chloride 0.9% 2.5 Ml Syringe) 2.5 ml FLUSH ASDIRECTED PRN PRN Reason: Keep Vein Open Sodium Chloride (Sodium Chloride 0.9% 10 Ml Sdv) 10 ml IV ASDIRECTED PRN PRN Reason: IV Use Discontinued Medications Glycopyrrolate (Glycopyrrolate 0.2 Mg/Ml Sdv) Confirm Administered Dose 0.2 mg .ROUTE .STK-MED ONE Stop: 08/29/20 07:09 Lidocaine (Lidocaine 2% 5 Ml Sdv) Confirm Administered Dose 5 ml .ROUTE .STK-MED ONE Stop: 08/29/20 07:09 Midazolam HCl (Midazolam 1 Mg/Ml 2 Ml Sdv) Confirm Administered Dose 2 mg .ROUTE .STK-MED ONE Stop: 08/29/20 07:09 Propofol (Propofol 200 Mg/20 Ml Sdv) Confirm Administered Dose 200 mg .ROUTE .STK-MED ONE Stop: 08/29/20 07:09
--- NOTE | 2020-08-29 09:34 | PCM.OPNOTE ---
- General Post-Op/Procedure Note Date of Surgery/Procedure: 08/29/20 Operative Procedure(s): Diagnostic EGD Findings: Hiatal hernia with mildly tortuous lower esophagus Pre Op Diagnosis: Heartburn, dysphagia Post-Op Diagnosis: Hiatal hernia Anesthesia Technique: DOROTEO Primary Surgeon: Yoana Dixon Condition: Good
[2020-08-29 09:48] VITALS: BP 115/69; PULSE 77
--- NOTE | 2020-08-29 10:22 | OR ---
SURGEON: YOANA DIXON MD DATE OF PROCEDURE: 08/29/2020 PREOPERATIVE DIAGNOSES: Heartburn, dysphagia. POSTOPERATIVE DIAGNOSES: Hiatal hernia with gastroesophageal reflux disease. PROCEDURE PERFORMED: Diagnostic esophagogastroduodenoscopy with biopsy. PRIMARY SURGEON: Yoana Dixon MD ANESTHESIA: MAC. INSTRUMENT USED: Olympus endoscope. EXTENT OF EXAM: To the second portion of duodenum. PREPARATION: Good. LIMITATIONS: None. INDICATIONS FOR EXAMINATION: The patient is a 40-year-old female who has had years of reflux. Recently, these symptoms have gotten worse and she has noted some dysphagia. The patient and I discussed the need for a diagnostic EGD. I explained the procedure, expected perioperative course, and risks. The patient verbalized understanding and wishes to proceed. PROCEDURE IN DETAIL: The patient was brought to the endoscopy suite and placed in a beach chair position. A time-out was completed verifying the patient's name, age, date of , allergies, and procedure to be performed. Monitored anesthesia care was induced. A bite block was placed in the patient's mouth. Continuous oxygen was provided via face mask throughout the procedure. After adequate sedation was achieved, a well-lubricated endoscope was placed in the patient's mouth and advanced under direct visualization to the second portion of duodenum. This appeared normal, and a photograph was taken. The scope was then fully withdrawn while examining the color, texture, anatomy, and integrity mucosa of the upper GI tract. The duodenal bulb appeared normal. A photograph of the duodenal bulb was taken. The scope was brought into the stomach, and a photograph taken of the pylorus and GE junction. The patient was noted to have a hiatal hernia at the GE junction. Biopsies were taken from the gastric antrum, body, and fundus. These were sent to Pathology for histologic review and H. pylori testing. A fundal biopsy was taken at the diaphragmatic hiatus. A photograph was taken of the hiatal hernia sac. The hiatal hernia appeared to be of approximately 10 cm long. The Z-line appeared normal, and a photograph was taken. A biopsy was taken above the Z-line and sent to Pathology, labeled as esophageal biopsy. The distal esophagus was mildly tortuous in association with a hiatal hernia. The remainder of the esophagus was normal. The scope was removed, and the procedure terminated. The patient tolerated the procedure well, was transferred to the PACU in stable condition. ENDOSCOPIC DIAGNOSES: Hiatal hernia with gastroesophageal reflux disease. RECOMMENDATIONS: The patient was started on AcipHex by her primary care provider. She says her symptoms are improving with this. We will discuss her biopsy results in clinic in 2 weeks and any further steps in management and treatment. AZAEL HOLLAND /[id number] MTDBlake
--- NOTE | 2020-08-29 10:30 | PCM.POSTAN ---
POST ANESTHESIA ASSESSMENT - MENTAL STATUS Mental Status: Alert (no anesthetic problems), Oriented - VITAL SIGNS Vital Signs: Last Vital Signs Temp 96.8 F L 08/29/20 09:40 Pulse 77 08/29/20 09:40 Resp 14 08/29/20 09:40 BP 115/69 08/29/20 09:40 Pulse Ox 95 08/29/20 09:40 - RESPIRATORY Respiratory Status: Respiratory Rate WNL, Airway Patent, O2 Saturation Stable - CARDIOVASCULAR CV Status: Pulse Rate WNL, Blood Pressure Stable - GASTROINTESTINAL GI Status: No Symptoms - POST OP HYDRATION Hydration Status: Adequate & Stable
--- NOTE | 2020-08-29 10:30 | PCM48HPAN ---
Post Anesthesia Note - EVALUATION WITHIN 48HRS OF ANESTHETIC Vital Signs in Normal Range: Yes Patient Participated in Evaluation: Yes Respiratory Function Stable: Yes Airway Patent: Yes Cardiovascular Function Stable: Yes Hydration Status Stable: Yes Pain Control Satisfactory: Yes Nausea and Vomiting Control Satisfactory: Yes Mental Status Recovered: Yes Vital Signs: Last Vital Signs Temp 96.8 F L 08/29/20 09:40 Pulse 77 08/29/20 09:40 Resp 14 08/29/20 09:40 BP 115/69 08/29/20 09:40 Pulse Ox 95 08/29/20 09:40
== END 2020-08-29 09:58 | disposition home or self-care (01) ==
LOC: MW.SDS 07:11
PROVIDERS: ATTEND Surgery
DX: K29.50 Unspecified chronic gastritis without bleeding (principal); K42.9 Umbilical hernia without obstruction or gangrene; K21.9 Gastro-esophageal reflux disease without esophagitis; K44.9 Diaphragmatic hernia without obstruction or gangrene; M62.08 Separation of muscle (nontraumatic), other site; K20.90 Esophagitis, unspecified without bleeding; E66.9 Obesity, unspecified; Z88.2 Allergy status to sulfonamides; Z79.899 Other long term (current) drug therapy; Z90.49 Acquired absence of other specified parts of digestive tract; Z98.890 Other specified postprocedural states; Z87.891 Personal history of nicotine dependence; Z68.37 Body mass index [BMI] 37.0-37.9, adult
CPT/HCPCS: 81025; 88305; 88312; J2250; J2704; J3490; J7120

== ENCOUNTER 2020-12-20 18:44 | Emergency (ER) | payer BC ==
--- NOTE | 2020-12-20 22:32 | EDM.PDOC ---
ED HPI GENERAL MEDICAL PROBLEM - General Chief Complaint: Skin Complaint Stated Complaint: INFECTION IN LT BREAST Time Seen by Provider: 12/20/20 22:23 - History of Present Illness INITIAL COMMENTS - FREE TEXT/NARRATIVE: HISTORY AND PHYSICAL: History of present illness: This is a 40-year-old female with no significant past medical history presents ER today secondary to pain and yellow drainage from her left nipple that started this evening. Patient reports that she has had her last baby approximately 2 years ago. Patient has any recent fevers, shakes, chills, nausea, vomiting, diarrhea, dysuria, frequency, urgency, chest pain, shortness of breath. Patient reports that she has never had a mammogram in the past. Patient denies any swelling or tenderness to her left axilla. Patient denies any swelling identified other than palpable tenderness to her left breast at approximately the 10 o'clock position. Review of systems: As per history of present illness and below otherwise all systems reviewed and negative. Past medical history: As per history of present illness and as reviewed below otherwise noncontributory. Surgical history: As per history of present illness and as reviewed below otherwise noncontributo ry. Social history: No reported history of drug abuse. Family history: As per history of present illness and as reviewed below otherwise noncontributory. Physical exam: This patient was seen and evaluated during the 2019 SARS-CoV-2 novel coronavirus pandemic period. Community viral transmission is ongoing at time of this encounter and the emergency department is operating under pandemic response procedures. Constitutional: Patient is oriented to person, place, and time. Appears well- developed and well-nourished. No distress. HEENT: Moist mucous membranes Head: Normocephalic and atraumatic Eyes: Right eye exhibits no discharge. Left eye exhibits no discharge. No scleral icterus Neck: Normal range of motion. No tracheal deviation present. Cardiovascular: Normal rate and regular rhythm. Pulmonary: Effort normal, no respiratory distress. Abdominal: No distention Musculoskeletal: Normal range of motion Neurologic: Alert and oriented to person, place and time. Skin: [place], warm and dry. Psychiatric: Normal mood and affect. Behavior is normal. Judgment and thought content normal. Nursing note and vital signs have been reviewed Patient's ER physical exam is remarkable for tenderness to palpation to her left breast with approximately 10 o'clock position from the nipple. Patient has no purulent drainage expressed from her nipple. Patient has no mass that I can appreciate fluctuance or other abnormalities that can be appreciated on exam. Patient has no axillary lymphadenopathy. Patient's breasts are equal and symmetrical bilaterally. Diagnostics: [] Therapeutics: [] Assessment and plan: 40-year-old female who presents ER today secondary to possible infection to her left breast. I have discussed with the patient that she will need a mammogram as an outpatient however given her discharge we will start her on antibiotics. Patient will follow up with her primary care physician to set up an outpatient mammogram. Reassessment at the time of disposition demonstrates that the patient is in no acute distress. The patient has remained stable throughout the entire ED visit and is without objective evidence for acute process requiring urgent intervent ion or hospitalization. The patient is stable for discharge, counseling is provided as documented above, discussed symptomatic treatment and specific conditions for return. I have spoken with the patient/caregiver and discussed todays findings, in addition to providing specific details for the plan of care. Questions are answered and there is agreement with the plan. Definitive disposition and diagnosis as appropriate pending reevaluation and review of above. left breast Pain Score (Numeric/FACES): 3 - Related Data Allergies Allergy/AdvReac Type Severity Reaction Status Date / Time Sulfa (Sulfonamide Allergy Redness Verified 12/20/20 22:23 Antibiotics) Home Meds: Home Meds DULoxetine [Cymbalta] 30 mg PO BRK 05/25/14 [History] Sertraline [Zoloft] 25 mg PO DAILY 08/18/20 [History] Cholecalciferol (Vitamin D3) [Vitamin D3] 50,000 unit PO ASDIRECTED 08/23/20 [History] RABEprazole Sodium [Aciphex] 20 mg PO DAILY 08/23/20 [History] Ibuprofen 600 mg PO Q6HR PRN #30 tablet 12/20/20 [Rx] cephALEXin [Keflex] 500 mg PO Q8H #30 cap 12/20/20 [Rx] Past Medical History HEENT History: Reports: Other (See Below) Other HEENT History: uses reading glasses Cardiovascular History: Reports: Heart Murmur Other Cardiovascular History: was told she has a "slight murmur" but is "insignifigant" Respiratory History: Reports: None Gastrointestinal History: Reports: GERD Genitourinary History: Reports: None 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 Musculoskeletal History: Reports: Arthritis, Back Pain, Chronic Other Musculoskeletal History: hx of fx finger, hx of bulging discs in lower bacj Neurological History: Reports: None Psychiatric History: Reports: Anxiety, Depression Endocrine/Metabolic History: Reports: Obesity/BMI 30+ Hematologic History: Reports: None Immunologic History: Reports: None Oncologic (Cancer) History: Reports: None Dermatologic History: Reports: None - Infectious Disease History Infectious Disease History: Reports: Chicken Pox - Past Surgical History Head Surgeries/Procedures: Reports: None HEENT Surgical History: Reports: Adenoidectomy, Naso-Sinus Surgery, Tonsillectomy Cardiovascular Surgical History: Reports: None Respiratory Surgical History: Reports: None GI Surgical History: Reports: Cholecystectomy Other GI Surgeries/Procedures: stents placed after gall bladder removed Female Surgical History: Reports: None Endocrine Surgical History: Reports: None Neurological Surgical History: Reports: None Musculoskeletal Surgical History: Reports: None Oncologic Surgical History: Reports: None Dermatological Surgical History: Reports: None Social & Family History - Family History Family Medical History: No Pertinent Family History - Caffeine Use Caffeine Use: Reports: Coffee, Energy Drinks, Soda ED ROS GENERAL - Review of Systems Review Of Systems: See Below ED EXAM, SKIN/RASH Exam: See Below Course - Vital Signs Last Recorded V/S: Last Vital Signs Temp 97.2 F 12/20/20 22:23 Pulse 82 12/20/20 22:23 Resp 18 12/20/20 22:23 BP 152/89 H 12/20/20 22:23 Pulse Ox 97 12/20/20 22:23 Departure - Departure Time of Disposition: 22:30 Disposition: Home, Self-Care 01 Condition: Good Clinical Impression: Mastitis - Discharge Information Instructions: Mastitis, [id number] Referrals: Rosemary Soto NP [Primary Care Provider] - Additional Instructions: You were seen and evaluated in the ER today secondary to discharge from your left nipple. You will get started on an antibiotic to treat you for possible mastitis. Please make sure that you see your doctor this week so they can sche dule you for an outpatient mammogram to exclude other possible causes such as cancer that may result in tenderness and discharge from the nipple. Keflex 500 mg 3 times a day x10 days Ibuprofen 600 mg every 6 hours as needed The following information is given to patients seen in the emergency department who are being discharged to home. This information is to outline your options for follow-up care. We provide all patients seen in our emergency department with a follow-up referral. The need for follow-up, as well as the timing and circumstances, are variable depending upon the specifics of your emergency department visit. If you don't have a primary care physician on staff, we will provide you with a referral. We always advise you to contact your personal physician following an emergency department visit to inform them of the circumstance of the visit and for follow-up with them and/or the need for any referrals to a consulting specialist. The emergency department will also refer you to a specialist when appropriate. This referral assures that you have the opportunity for follow-up care with a specialist. All of these measure are taken in an effort to provide you with optimal care, which includes your follow-up. Under all circumstances we always encourage you to contact your private physician who remains a resource for coordinating your care. When calling for follow-up care, please make the office aware that this follow-up is from your recent emergency room visit. If for any reason you are refused follow-up, please contact the [facility] Emergency Department at and asked to speak to the emergency department charge nurse. [facility] [address] [place] [address] [address] Sepsis Event Note (ED) - Focused Exam Vital Signs: Vital Signs Temp Pulse Resp BP Pulse Ox 12/20/20 22:23 97.2 F 82 18 152/89 H 97
[2020-12-21 02:41] VITALS: BP 140/80; PULSE 78
== END 2020-12-20 22:40 | disposition home or self-care (01) ==
LOC: MW.ED 18:44
DX: N61.0 Mastitis without abscess (principal); E66.9 Obesity, unspecified; Z68.30 Body mass index [BMI] 30.0-30.9, adult; Z88.2 Allergy status to sulfonamides
CPT/HCPCS: 99283

== ENCOUNTER 2021-04-13 12:42 | Emergency (ER) | payer SELFPAY ==
[2021-04-13] MEDS ORDERED: Sodium Chloride 0.9% 1,000 ML IV ONE (13:52)
--- NOTE | 2021-04-13 13:55 | EDM.PDOC ---
ED HPI GENERAL MEDICAL PROBLEM - General Chief Complaint: General Stated Complaint: COVID POS COUGHING Time Seen by Provider: 04/13/21 13:48 Source of Information: Reports: Patient History Limitations: Reports: No Limitations - History of Present Illness INITIAL COMMENTS - FREE TEXT/NARRATIVE: Patient is a 40-year-old female who tested positive for Covid this past Wednesday and states she is does not feel well. She had decreased taste smell and states is hard for her to eat or drink. She has been trying drink much water she can still feel tired and weak. Denies any vomiting today abdominal pain chest pain shortness of breath or cough. - Related Data Allergies Allergy/AdvReac Type Severity Reaction Status Date / Time Sulfa (Sulfonamide Allergy Redness Verified 04/13/21 13:49 Antibiotics) Home Meds: Home Meds DULoxetine [Cymbalta] 30 mg PO BRK 05/25/14 [History] Sertraline [Zoloft] 25 mg PO DAILY 08/18/20 [History] Cholecalciferol (Vitamin D3) [Vitamin D3] 50,000 unit PO ASDIRECTED 08/23/20 [History] RABEprazole Sodium [Aciphex] 20 mg PO DAILY 08/23/20 [History] Ibuprofen 600 mg PO Q6HR PRN #30 tablet 12/20/20 [Rx] cephALEXin [Keflex] 500 mg PO Q8H #30 cap 12/20/20 [Rx] Past Medical History HEENT History: Reports: Other (See Below) Other HEENT History: uses reading glasses Cardiovascular History: Reports: Heart Murmur Other Cardiovascular History: was told she has a "slight murmur" but is "insignifigant" Respiratory History: Reports: None Gastrointestinal History: Reports: GERD Genitourinary History: Reports: None 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 Musculoskeletal History: Reports: Arthritis, Back Pain, Chronic Other Musculoskeletal History: hx of fx finger, hx of bulging discs in lower bacj Neurological History: Reports: None Psychiatric History: Reports: Anxiety, Depression Endocrine/Metabolic History: Reports: Obesity/BMI 30+ 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 Hematologic History: Reports: None Immunologic History: Reports: None Oncologic (Cancer) History: Reports: None Dermatologic History: Reports: None - Infectious Disease History Infectious Disease History: Reports: Chicken Pox - Past Surgical History Head Surgeries/Procedures: Reports: None HEENT Surgical History: Reports: Adenoidectomy, Naso-Sinus Surgery, Tonsillectomy Cardiovascular Surgical History: Reports: None Respiratory Surgical History: Reports: None GI Surgical History: Reports: Cholecystectomy Other GI Surgeries/Procedures: stents placed after gall bladder removed Female Surgical History: Reports: None Endocrine Surgical History: Reports: None Neurological Surgical History: Reports: None Musculoskeletal Surgical History: Reports: None Oncologic Surgical History: Reports: None Dermatological Surgical History: Reports: None Social & Family History - Family History Family Medical History: No Pertinent Family History - Caffeine Use Caffeine Use: Reports: None ED ROS GENERAL - Review of Systems Review Of Systems: See Below Constitutional: Reports: Chills, Malaise HEENT: Reports: No Symptoms Respiratory: Reports: No Symptoms Cardiovascular: Reports: No Symptoms Endocrine: Reports: No Symptoms GI/Abdominal: Reports: No Symptoms : Reports: No Symptoms Musculoskeletal: Reports: No Symptoms Skin: Reports: No Symptoms Neurological: Reports: No Symptoms Psychiatric: Reports: No Symptoms Hematologic/Lymphatic: Reports: No Symptoms Immunologic: Reports: No Symptoms ED EXAM, GENERAL - Physical Exam Exam: See Below Exam Limited By: No Limitations General Appearance: Alert, WD/WN, No Apparent Distress Throat/Mouth: Normal Inspection Head: Atraumatic Respiratory/Chest: No Respiratory Distress, Lungs Clear, Normal Breath Sounds Cardiovascular: Normal Peripheral Pulses, Regular Rate, Rhythm GI/Abdominal: Normal Bowel Sounds, Soft, Non-Tender Extremities: Normal Inspection Neurological: Alert, Oriented, Normal Cognition, Normal Gait Course - Vital Signs Last Recorded V/S: Last Vital Signs Temp 96.8 F L 04/13/21 13:51 Pulse 79 04/13/21 13:51 Resp 18 04/13/21 13:51 BP 122/93 H 04/13/21 13:51 Pulse Ox 98 04/13/21 13:51 - Orders/Labs/Meds Labs: Laboratory Tests 04/13/21 04/13/21 Range/Units 14:10 14:10 WBC 4.54 (4.0-11.0) K/uL RBC 5.27 (4.30-5.90) M/uL Hgb 15.4 (12.0-16.0) g/dL Hct 45.3 (36.0-46.0) % MCV 86.0 (80.0-98.0) fL MCH 29.2 (27.0-32.0) pg MCHC 34.0 (31.0-37.0) g/dL RDW Std Deviation 42.6 (28.0-62.0) fl RDW Coeff of Angelito 14 (11.0-15.0) % Plt Count 189 (150-400) K/uL MPV 11.30 (7.40-12.00) fL Neut % (Auto) 61.6 (48.0-80.0) % Lymph % (Auto) 26.7 (16.0-40.0) % [place] % (Auto) 10.6 (0.0-15.0) % Eos % (Auto) 0.4 (0.0-7.0) % Baso % (Auto) 0.7 (0.0-1.5) % Neut # (Auto) 2.8 (1.4-5.7) K/uL Lymph # (Auto) 1.2 (0.6-2.4) K/uL [place] # (Auto) 0.5 (0.0-0.8) K/uL Eos # (Auto) 0.0 (0.0-0.7) K/uL Baso # (Auto) 0.0 (0.0-0.1) K/uL Nucleated RBC % 0.0 /100WBC Nucleated RBCs # 0 K/uL Sodium 141 (136-145) mmol/L Potassium 3.0 L (3.5-5.1) mmol/L Chloride 101 (98-107) mmol/L Carbon Dioxide 25.6 (21.0-32.0) mmol/L BUN 9 (7.0-18.0) mg/dL Creatinine 0.8 (0.6-1.0) mg/dL Est Cr Clr Drug Dosing 90.90 mL/min Estimated GFR (MDRD) > 60.0 ml/min Glucose 93 (74-106) mg/dL Calcium 9.0 (8.5-10.1) mg/dL Total Bilirubin 0.3 (0.2-1.0) mg/dL AST 41 H (15-37) IU/L ALT 48 (14-63) IU/L Alkaline Phosphatase 88 (46-116) U/L Total Protein 7.9 (6.4-8.2) g/dL Albumin 3.8 (3.4-5.0) g/dL Globulin 4.1 H (2.6-4.0) g/dL Albumin/Globulin Ratio 0.9 (0.9-1.6) Meds: Medications Discontinued Medications Generic Name Dose Route Start Last Admin Trade Name Demetria PRN Reason Stop Dose Admin Sodium Chloride 1,000 mls @ 999 mls/hr 04/13/21 13:52 04/13/21 14:12 Normal Saline IV 04/13/21 14:52 999 mls/hr .BOLUS ONE Administration - Re-Assessments/Exams Free Text/Narrative Re-Assessment/Exam: 04/13/21 15:02 Give 1 L of fluids feels better to be discharged home. Departure - Departure Time of Disposition: 15:02 Disposition: Home, Self-Care 01 Condition: Good Clinical Impression: Dehydration - Discharge Information *PRESCRIPTION DRUG MONITORING PROGRAM REVIEWED*: Not Applicable *COPY OF PRESCRIPTION DRUG MONITORING REPORT IN PATIENT MONSTER: Not Applicable Instructions: Dehydration, Adult, [id number] Referrals: Rito Laird MD [Primary Care Provider] - Forms: ED Department Discharge Additional Instructions: You are diagnosed with Covid a few days ago. Please try to stay hydrated at home. If you have any other concerning signs symptom please follow with your primary care physician. The following information is given to patients seen in the emergency department who are being discharged to home. This information is to outline your options for follow-up care. We provide all patients seen in our emergency department with a follow-up referral. The need for follow-up, as well as the timing and circumstances, are variable depending upon the specifics of your emergency department visit. If you don't have a primary care physician on staff, we will provide you with a referral. We always advise you to contact your personal physician following an emergency department visit to inform them of the circumstance of the visit and for follow-up with them and/or the need for any referrals to a consulting specialist. The emergency department will also refer you to a specialist when appropriate. This referral assures that you have the opportunity for follow-up care with a specialist. All of these measure are taken in an effort to provide you with optimal care, which includes your follow-up. Under all circumstances we always encourage you to contact your private physician who remains a resource for coordinating your care. When calling for follow-up care, please make the office aware that this follow-up is from your recent emergency room visit. If for any reason you are refused follow-up, please contact the [facility] Emergency Department at and asked to speak to the emergency department charge nurse. Please follow up with your primary care physician. If you do not have a primary care physician, see below: [facility] [address] [place] [id number] [facility] [address] [place] [address] Sepsis Event Note (ED) - Focused Exam Vital Signs: Vital Signs Temp Pulse Resp BP Pulse Ox 04/13/21 13:51 96.8 F L 79 18 122/93 H 98 - Assessment/Plan Plan: Patient is a 40-year-old female tested positive for Covid a few days ago presents today for weakness and fatigue. Patient notes that she feels dehydrated should not be repeated at home. Will obtain basic labs give IV fluid s. Patient satting 97 on room air and looks well.
[2021-04-13 14:40] LABS: BLOOD UREA NITROGEN,BUN 9 mg/dL (7.0-18.0); CARBON DIOXIDE,CO2 25.6 mmol/L (21.0-32.0); CHLORIDE,CL 101 mmol/L (98-107); GLUCOSE RANDOM 93 mg/dL (74-106); SODIUM,NA 141 mmol/L (136-145)
[2021-04-13 19:20] VITALS: BP 110/84; PULSE 72
== END 2021-04-13 15:30 | disposition home or self-care (01) ==
LOC: MW.ED 12:42
DX: E86.0 Dehydration (principal); K21.9 Gastro-esophageal reflux disease without esophagitis; E66.9 Obesity, unspecified; Z68.36 Body mass index [BMI] 36.0-36.9, adult; Z88.2 Allergy status to sulfonamides; Z79.899 Other long term (current) drug therapy
CPT/HCPCS: 36415; 80053; 85025; 99284; J7030; 99283

== ENCOUNTER 2021-10-13 23:01 | Emergency (ER) | payer BC ==
[2021-10-13] MEDS ORDERED: Ketorolac 30 MG/ML SDV IM ONE (23:42)
[2021-10-14 00:47] VITALS: BP 129/76; PULSE 82
== END 2021-10-14 00:45 | disposition home or self-care (01) ==
LOC: MW.ED 23:01
DX: S39.91XA Unspecified injury of abdomen, initial encounter (principal); M25.552 Pain in left hip; M79.652 Pain in left thigh; W01.0XXA Fall on same level from slipping, tripping and stumbling without subsequent striking against object, initial encounter
CPT/HCPCS: 72170; 73552; 96372; 99283; J1885; 99281